=== PATIENT | female | born 1950 | race Caucasian/White ===

== ENCOUNTER → 2017-08-23 | Outpatient (CLI) | payer OTHER | LOC: RAD 13:21 | DX: R06.02 Shortness of breath (principal); L40.0 Psoriasis vulgaris; Z79.899 Other long term (current) drug therapy ==

== ENCOUNTER → 2019-03-26 | Outpatient (CLI) | payer OTHER | LOC: RAD 14:35 | DX: L40.0 Psoriasis vulgaris (principal); Z79.899 Other long term (current) drug therapy ==

== ENCOUNTER → 2020-07-13 | Outpatient (CLI) | payer OTHER | LOC: RAD 11:43 | PROVIDERS: ATTEND Physician Assistant | DX: L40.0 Psoriasis vulgaris (principal); Z79.899 Other long term (current) drug therapy ==